=== PATIENT | male | born 1985 | race Caucasian/White ===

== ENCOUNTER 2017-09-24 17:05 | Emergency (ER) | payer SELFPAY ==
[2017-09-24 17:17] VITALS: BP 151/81
[2017-09-24] MEDS ORDERED: IV NORMAL SALINE 1,000ML 1,000 ML IV SCH (17:18)
--- NOTE | 2017-09-24 17:23 | PHYS DOC ---
Past History Past Medical History: Other Additional Past Medical Histor: kidney stone Smoking: Greater than 1 pack/day Drug Use: None Adult General Chief Complaint Chief Complaint: BACK PAIN OR INJURY HPI HPI 32-year-old male patient complaining of sudden onset of left flank pain since yesterday as a constant pain with radiation to left scrotal area that getting force with movement. Patient complaining of nausea and hematuria and urinary frequency and dysuria. Patient rated the ninth states the pain is constant. Patient states that the same pain kidney stone 2 years ago. Patient denies associated fever and chills and dehydration. Review of Systems Review of Systems Constitutional: Denies fever or chills [] Eyes: Denies change in visual acuity, redness, or eye pain [] HENT: Denies nasal congestion or sore throat [] Respiratory: Denies cough or shortness of breath [] Cardiovascular: No additional information not addressed in HPI [] GI: Denies abdominal pain, vomiting, bloody stools or diarrhea, reports nausea [] : Reports dysuria and hematuria and flank pain Musculoskeletal: Denies back pain or joint pain [] Integument: Denies rash or skin lesions [] Neurologic: Denies headache, focal weakness or sensory changes [] Endocrine: Denies polyuria or polydipsia [] All other systems were reviewed and found to be within normal limits, except as documented in this note. Allergies Allergies Allergies Coded Allergies Type Severity Reaction Last Updated Verified tramadol Allergy Mild 09/24/17 Yes Physical Exam Physical Exam Constitutional: Well nourished, mild distress, non-toxic appearance. [] HENT: Normocephalic, atraumatic, bilateral external ears normal, oropharynx moist, no oral exudates, nose normal. [] Eyes: PERRLA, EOMI, conjunctiva normal, no discharge. [] Neck: Normal range of motion, no tenderness, supple, no stridor. [] Cardiovascular:Heart rate regular rhythm, no murmur [] Lungs & Thorax: Bilateral breath sounds clear to auscultation [] Abdomen: Bowel sounds normal, soft, no tenderness, no masses, no pulsatile masses. [] Skin: Warm, dry, no erythema, no rash. [] Back: No tenderness, left CVA tenderness. [] Extremities: No tenderness, no cyanosis, no clubbing, ROM intact, no edema. [] Neurologic: Alert and oriented X 3, normal motor function, normal sensory function, no focal deficits noted. [] Psychologic: Affect normal, judgement normal, mood normal. [] EKG EKG [] Radiology/Procedures Radiology/Procedures [] Course & Med Decision Making Course & Med Decision Making Pertinent Labs and Imaging studies are pending. Patient presented to ER with left flank pain and nausea and hematuria since yesterday. Patient had CV tenderness without fever and tachycardia. Patient decided to leave AMA at 1748 and sign AMA form. Dragon Disclaimer Dragon Disclaimer This electronic medical record was generated, in whole or in part, using a voice recognition dictation system. Departure Departure: Impression: Primary Impression: Left against medical advice Additional Impressions: Acute flank pain Tobacco abuse Disposition: 07 AGAINST MEDICAL ADVICE (At 1748) Problem Qualifiers HANNA LANDERS MD Sep 24, 2017 17:23
[2017-09-24] MEDS ORDERED: 0.9 % SODIUM CHLORIDE 10 ML DISP.SYRIN. IV PRN (17:30)
[2017-09-24] MEDS ORDERED: ONDANSETRON PF 4 MG/2 ML VIAL. IV ONE (17:45)
[2017-09-24] MEDS ORDERED: KETOROLAC 30 MG/ML VIAL. IV ONE (17:45)
--- NOTE | 2017-09-24 17:46 | RAD ---
Indication: Left flank pain with hematuria for 2 days. History of renal stones. Technique: Axial images and coronal and sagittal reformatted images are provided. Comparison is from August 30, 2017. One or more of the following individualized dose reduction techniques were utilized for this examination: 1. Automated exposure control 2. Adjustment of the mA and/or kV according to patient size 3. Use of iterative reconstruction technique Findings: There are some vague groundglass nodules in the right lower lobe up to 4 mm in size. There is also a solid nodule measuring 6 mm. There is no pleural effusion. The heart is not enlarged. Solid organ evaluation is limited without contrast. Liver is unremarkable. Gallbladder is absent. Spleen is not enlarged. Pancreas and adrenals are unremarkable. Density in the left kidney is likely a 4 mm nonobstructing calculus. There is no obstructing calculus. Neither ureter is dilated and neither ureter can be followed in its entirety. No calculus along the expected course of either ureter is apparent. Aorta is normal caliber. Lack of IV or oral contrast limits evaluation of bowel. There is no small bowel obstruction or obvious mural thickening. Colon is grossly unremarkable, there is a moderate amount of stool in the colon. Appendix is reported as surgically absent. Bladder is unremarkable. Calcified phleboliths are noted. Prostate is not enlarged. Bony structures are intact. IMPRESSION: 1. Nonobstructing calculus in the left kidney. No obstructing calculus. 2. Groundglass nodules in the right lower lobe, 3 month follow-up recommended per Fleischner Society guidelines. The solid nodule can be reevaluated at that time as well. Electronically signed by: Selvin Munzo MD (09/24/2017 5:43 PM) [facility]
[2017-09-24 18:01] LABS: BASO # 0.1 x10^3/uL (0.0-0.2); BASO % 1 % (0-3); EOS # 0.4 x10^3/uL (0.0-0.7); EOS % 7 % (0-3); HEMOGLOBIN 14.3 g/dL (13.0-17.5); LYMPH # 1.4 x10^3/uL (1.0-4.8); LYMPH % 25 % (24-48); MEAN CORPUSCULAR HEMOGLOBIN 30 pg (25-35); MEAN CORPUSCULAR HGB CONC 34 g/dL (31-37); MEAN CORPUSCULAR VOLUME 89 fL (79-100); MONO # 0.6 x10^3/uL (0.0-1.1); MONO % 12 % (0-9); NEUT % 55 % (31-73); PLATELET COUNT 225 x10^3/uL (140-400); RED BLOOD COUNT 4.71 x10^6/uL (4.30-5.70); RED CELL DISTRIBUTION WIDTH 13.8 % (11.5-14.5); WHITE BLOOD COUNT 5.4 x10^3/uL (4.0-11.0)
[2017-09-24 18:15] LABS: ALBUMIN 3.3 g/dL (3.4-5.0); CALCIUM 8.6 mg/dL (8.5-10.1); CREATININE 1.1 mg/dL (0.7-1.3); GFR 77.1; POTASSIUM 4.3 mmol/L (3.5-5.1); TOTAL BILIRUBIN 0.2 mg/dL (0.2-1.0); TOTAL PROTEIN 6.5 g/dL (6.4-8.2)
[2017-09-24 18:16] LABS: BARBITURATES NEG (NEG); BENZODIAZEPINES NEG (NEG); CANNABINOIDS NEG (NEG); COCAINE NEG (NEG); METHADONE NEG (NEG); OPIATES POS (NEG); PHENCYCLIDINE NEG (NEG)
[2017-09-24 18:17] LABS: AMPHETAMINE/METHAMPHETAMINE POS (NEG)
[2017-09-24 18:24] LABS: COLOR,URINE AMBER
[2017-09-24 18:25] LABS: BILIRUBIN,URINE NEG (NEG); CLARITY,URINE HAZY; GLUCOSE,URINE NEG (NEG); NITRITE,URINE NEG (NEG); UROBILINOGEN,URINE 1 mg/dL (0.2 mg/dL)
[2017-09-24 18:26] LABS: BACTERIA,URINE 0 /HPF (0-FEW); RBC,URINE TNTC /HPF (0-2); SQUAMOUS EPITHELIAL CELL,UR FEW /LPF
[2017-09-25] MEDS ORDERED: ONDA8TAB12 PO (03:28)
[2017-09-25] MEDS ORDERED: HYDR-79 PO (03:28)
== END 2017-09-24 18:05 | disposition left against medical advice (07) ==
LOC: ER 17:05
DX: R10.9 Unspecified abdominal pain (principal); R31.9 Hematuria, unspecified; R30.0 Dysuria; F17.200 Nicotine dependence, unspecified, uncomplicated; Z87.442 Personal history of urinary calculi; Z88.6 Allergy status to analgesic agent
CPT/HCPCS: 36415; 74176; 80053; 80307; 81001; 83690; 85025; 96374; 96375; 99285; J1885; J2405; G0479

== ENCOUNTER 2017-09-25 01:44 | Emergency (ER) | payer SELFPAY ==
[~2017-09-25] VITALS: Ht 180.3 cm; Wt 77.1 kg
--- NOTE | 2017-09-25 01:56 | ED.ADGEN ---
Past History Past Medical History: Kidney Stones, Other Additional Past Medical Histor: kidney stone Past Surgical History: No Surgical History Smoking: Greater than 1 pack/day Alcohol Use: None Drug Use: None Adult General Chief Complaint Chief Complaint ".. I was here earlier.. but I had to leave because my needed a ride.. but I think I got a kidney stone. .. here on the lt." HPI HPI Patient is a 32 year old male who presents with above hx and complaints left sided renal colic. He has had 1 previous kidney stone. Patient denies any trauma. Patient denies any travel. Patient denies any ill contacts. Patient denies any history immunosuppression. Reviewed CT completed earlier, no findings of obstructing kidney stone. There was a nonobstructing calculus in the left kidney. Does have some nonspecific ground glass nodules in the right lower pulmonary area. No other surgical pathology detected Review of Systems Review of Systems Constitutional: Denies fever or chills [] Eyes: Denies change in visual acuity, redness, or eye pain [] HENT: Denies nasal congestion or sore throat [] Respiratory: Denies cough or shortness of breath [] Cardiovascular: No additional information not addressed in HPI [] GI: Complaints of abdominal pain, nausea, vomiting,. Pain is localized to left flank. Patient denies Bloody stools or diarrhea [] : Denies dysuria or hematuria [] Musculoskeletal: Denies back pain or joint pain [] Integument: Denies rash or skin lesions [] Neurologic: Denies headache, focal weakness or sensory changes [] Endocrine: Denies polyuria or polydipsia [] All other systems were reviewed and found to be within normal limits, except as documented in this note. Family History Family History Noncontributory Current Medications Current Medications Current Medications Medications (Trade) Dose Ordered Sig/David Start Time Stop Time Status Last Admin Dose Admin Famotidine (Pepcid Vial) 20 mg 1X ONCE 09/25/17 02:15 09/25/17 02:16 DC 09/25/17 02:34 20 MG Ketorolac Tromethamine (Toradol) 30 mg 1X ONCE 09/25/17 02:15 09/25/17 02:16 DC 09/25/17 02:34 30 MG Lactated Ringer's 1,000 ml @ 1,000 mls/hr Q1H 09/25/17 02:10 09/25/17 03:10 DC 09/25/17 02:33 1,000 MLS/HR Morphine Sulfate (Morphine 10mg Syringe) 10 mg 1X ONCE 09/25/17 02:15 09/25/17 02:16 DC 09/25/17 02:35 10 MG Ondansetron HCl (Zofran) 8 mg 1X ONCE 09/25/17 02:15 09/25/17 02:16 DC 09/25/17 02:34 8 MG Tamsulosin HCl (Flomax) 0.4 mg 1X ONCE 09/25/17 02:15 09/25/17 02:16 DC 09/25/17 02:34 0.4 MG Allergies Allergies Allergies Coded Allergies Type Severity Reaction Last Updated Verified tramadol Allergy Mild 09/24/17 Yes Physical Exam Physical Exam Constitutional: Well developed, well nourished, Pt reports acute distress, non- toxic appearance. [] HENT: Normocephalic, atraumatic, bilateral external ears normal, oropharynx moist, no oral exudates, nose normal. [] Eyes: PERRLA, EOMI, conjunctiva normal, no discharge. [] Neck: Normal range of motion, no tenderness, supple, no stridor. [] Cardiovascular:Heart rate regular rhythm, no murmur [] Lungs & Thorax: Bilateral breath sounds equal with scattered wheezes on auscultation [] Abdomen: Bowel sounds decreased,, soft, left flank tenderness, no masses, no pulsatile masses. [] Skin: Warm, dry, no erythema, no rash. Multiple tattoos over his entire body. Appears to have injection singh on arm veins Back: No tenderness, left flank CVA tenderness. [] Extremities: No tenderness, no cyanosis, no clubbing, ROM intact, no edema. 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 [] Psychologic: Affect normal, judgement normal, mood normal. [] Current Patient Data Vital Signs Vital Signs Date Time Temp Pulse Resp B/P (MAP) Pulse Ox O2 Delivery O2 Flow Rate FiO2 09/25/17 01:44 97.8 80 16 98 Room Air Lab Results Laboratory Tests Test 09/25/17 02:18 09/25/17 02:27 Urine Collection Type Unknown Urine Color Jessika Urine Clarity Cloudy Urine pH 6.0 Urine Specific Union >=1.030 Urine Protein Trace (NEG-TRACE) Urine Glucose (UA) Neg mg/dL (NEG) Urine Ketones (Stick) Neg mg/dL (NEG) Urine Blood Large (NEG) Urine Nitrite Neg (NEG) Urine Bilirubin Neg (NEG) Urine Urobilinogen Dipstick 1 mg/dL (0.2 mg/dL) Urine Leukocyte Esterase Neg (NEG) Urine RBC Tntc /HPF (0-2) Urine WBC Occ /HPF (0-4) Urine Squamous Epithelial Cells Occ /LPF Urine Bacteria Few /HPF (0-FEW) Urine Mucus Slight /LPF Urine Opiates Screen Pos (NEG) Urine Methadone Screen Neg (NEG) Urine Barbiturates Neg (NEG) Urine Phencyclidine Screen Neg (NEG) Urine Amphetamine/Methamphetamine Pos (NEG) Urine Benzodiazepines Screen Neg (NEG) Urine Cocaine Screen Neg (NEG) Urine Cannabinoids Screen Neg (NEG) Urine Ethyl Alcohol Neg (NEG) White Blood Count 6.0 x10^3/uL (4.0-11.0) Red Blood Count 4.42 x10^6/uL (4.30-5.70) Hemoglobin 13.1 g/dL (13.0-17.5) Hematocrit 39.1 % (39.0-53.0) Mean Corpuscular Volume 89 fL (79-100) Mean Corpuscular Hemoglobin 30 pg (25-35) Mean Corpuscular Hemoglobin Concent 34 g/dL (31-37) Red Cell Distribution Width 13.9 % (11.5-14.5) Platelet Count 212 x10^3/uL (140-400) Neutrophils (%) (Auto) 47 % (31-73) Lymphocytes (%) (Auto) 33 % (24-48) Monocytes (%) (Auto) 12 % (0-9) H Eosinophils (%) (Auto) 8 % (0-3) H Basophils (%) (Auto) 1 % (0-3) Neutrophils # (Auto) 2.8 x10^3uL (1.8-7.7) Lymphocytes # (Auto) 1.9 x10^3/uL (1.0-4.8) Monocytes # (Auto) 0.7 x10^3/uL (0.0-1.1) Eosinophils # (Auto) 0.5 x10^3/uL (0.0-0.7) Basophils # (Auto) 0.1 x10^3/uL (0.0-0.2) Prothrombin Time 9.3 SEC (9.4-11.4) L Prothrombin Time INR 0.9 (0.9-1.1) PTT 24 SEC (23-33) Sodium Level 139 mmol/L (136-145) Potassium Level 3.8 mmol/L (3.5-5.1) Chloride Level 103 mmol/L (98-107) Carbon Dioxide Level 27 mmol/L (21-32) Anion Gap 9 (6-14) Blood Urea Nitrogen 17 mg/dL (8-26) Creatinine 1.1 mg/dL (0.7-1.3) Estimated GFR (Cockcroft-Gault) 77.1 Glucose Level 137 mg/dL (70-99) H Calcium Level 8.9 mg/dL (8.5-10.1) Total Bilirubin 0.2 mg/dL (0.2-1.0) Direct Bilirubin 0.1 mg/dL (0.0-0.2) Aspartate Amino Transferase (AST) 27 U/L (15-37) Alanine Aminotransferase (ALT) 37 U/L (16-63) Alkaline Phosphatase 131 U/L (46-116) H Total Protein 6.4 g/dL (6.4-8.2) Albumin 3.3 g/dL (3.4-5.0) L Lipase 109 U/L (73-393) EKG EKG [] Radiology/Procedures Radiology/Procedures Reviewed CT completed earlier in the day. My interpretation of Acute abdomen shows no acute cardiopulmonary findings. No free air in the diaphragm. Has clips in right upper quadrant from previous gallbladder surgery increased stool throughout the colon. No obvious renal stone appreciated.[] Course & Med Decision Making Course & Med Decision Making Pertinent Labs and Imaging studies reviewed. (See chart for details). Pt. sleeping comfortable prior to discharge. Patient continue to push clear fluids. No solid or milk products. Take Zofran as needed for nausea and vomiting. Take Tylenol and ibuprofen as needed for pain. For marked pain may take Vicoprofen up 4 times a day. Must follow-up primary care. Consider follow-up with urology and nephrology or hematuria. Patient encouraged to stop smoking and avoid illicit drug use. [] Final Impression Final Impression 1. Renal Colic Lt. [] 2. Hematuria 3. Polysubstance abuse Problems: Dragon Disclaimer Dragon Disclaimer This electronic medical record was generated, in whole or in part, using a voice recognition dictation system. DILSHAD CORCORAN MD Sep 25, 2017 01:56
[2017-09-25] MEDS ORDERED: IV RINGERS SOLUTION,LACTATED 1,000 ML IV SCH (02:10)
[2017-09-25] MEDS ORDERED: MORPHINE SULFATE 10 MG/ML SYRINGE. SQ ONE (02:15)
[2017-09-25] MEDS ORDERED: TAMSULOSIN 0.4 MG CAP.ER.24H. PO ONE (02:15)
[2017-09-25] MEDS ORDERED: ONDANSETRON PF 4 MG/2 ML VIAL. IV ONE (02:15)
[2017-09-25] MEDS ORDERED: KETOROLAC 30 MG/ML VIAL. IV ONE (02:15)
[2017-09-25] MEDS ORDERED: FAMOTIDINE 20 MG/2 ML VIAL IVP ONE (02:15)
[2017-09-25 02:52] LABS: BASO # 0.1 x10^3/uL (0.0-0.2); BASO % 1 % (0-3); EOS # 0.5 x10^3/uL (0.0-0.7); EOS % 8 % (0-3); HEMATOCRIT 39.1 % (39.0-53.0); HEMOGLOBIN 13.1 g/dL (13.0-17.5); LYMPH # 1.9 x10^3/uL (1.0-4.8); LYMPH % 33 % (24-48); MEAN CORPUSCULAR HEMOGLOBIN 30 pg (25-35); MEAN CORPUSCULAR HGB CONC 34 g/dL (31-37); MEAN CORPUSCULAR VOLUME 89 fL (79-100); MONO # 0.7 x10^3/uL (0.0-1.1); MONO % 12 % (0-9); NEUT # 2.8 x10^3uL (1.8-7.7); NEUT % 47 % (31-73); PLATELET COUNT 212 x10^3/uL (140-400); RED BLOOD COUNT 4.42 x10^6/uL (4.30-5.70); RED CELL DISTRIBUTION WIDTH 13.9 % (11.5-14.5)
[2017-09-25 02:52] LABS: BACTERIA,URINE FEW /HPF (0-FEW); BILIRUBIN,URINE NEG (NEG); CLARITY,URINE CLOUDY; COLOR,URINE AMBER; GLUCOSE,URINE NEG (NEG); NITRITE,URINE NEG (NEG); RBC,URINE TNTC /HPF (0-2); SQUAMOUS EPITHELIAL CELL,UR OCC /LPF; UROBILINOGEN,URINE 1 mg/dL (0.2 mg/dL); WBC,URINE OCC /HPF (0-4)
[2017-09-25 02:54] LABS: ALBUMIN 3.3 g/dL (3.4-5.0); CALCIUM 8.9 mg/dL (8.5-10.1); CREATININE 1.1 mg/dL (0.7-1.3); DIRECT BILIRUBIN 0.1 mg/dL (0.0-0.2); GFR 77.1; POTASSIUM 3.8 mmol/L (3.5-5.1); TOTAL BILIRUBIN 0.2 mg/dL (0.2-1.0); TOTAL PROTEIN 6.4 g/dL (6.4-8.2)
[2017-09-25 02:54] LABS: BARBITURATES NEG (NEG); BENZODIAZEPINES NEG (NEG); CANNABINOIDS NEG (NEG); COCAINE NEG (NEG); METHADONE NEG (NEG); OPIATES POS (NEG); PHENCYCLIDINE NEG (NEG)
[2017-09-25 02:55] LABS: AMPHETAMINE/METHAMPHETAMINE POS (NEG)
[2017-09-25 03:25] VITALS: BP 140/81
[2017-09-25] MEDS ORDERED: ONDA8TAB12 PO (03:28)
[2017-09-25] MEDS ORDERED: HYDR-79 PO (03:28)
--- NOTE | 2017-09-25 08:11 | RAD ---
Indication: Left flank pain Technique: Acute abdominal series Comparison: None Findings: Heart is normal in size. Lungs are clear. No pneumothorax or pleural effusion. No evidence of free intraperitoneal air. Status post cholecystectomy. No abnormal calcific density projecting over the kidneys. 4 mm calcific density in the left hemipelvis. No abnormally dilated bowel loops or air-fluid levels. Visualized bones are within normal limits. Impression: 4 mm calcific density projecting over the left hemipelvis may represent a phlebolith or distal ureteral stone. If there is concern for obstructing kidney stone, CT abdomen and pelvis without IV contrast recommended.
== END 2017-09-25 03:52 | disposition home or self-care (01) ==
LOC: ER 01:44
DX: N23 Unspecified renal colic (principal); F19.10 Other psychoactive substance abuse, uncomplicated; F17.210 Nicotine dependence, cigarettes, uncomplicated; Z87.442 Personal history of urinary calculi; Z88.6 Allergy status to analgesic agent
CPT/HCPCS: 36415; 74022; 80048; 80076; 80307; 81001; 83690; 85025; 85610; 85730; 96361; 96372; 96374; 96375; 99285; J1885; J2270; J2405; J7120; S0028; G0479

== ENCOUNTER 2017-10-22 13:21 | Emergency (ER) | payer SELFPAY ==
[~2017-10-22] VITALS: Ht 180.3 cm; Wt 77.1 kg
[~2017-10-22 13:21] MED LIST: HYDR-79 PO; ONDA8TAB12 PO
[2017-10-22 13:37] VITALS: BP 117/65
--- NOTE | 2017-10-22 13:39 | PHYS DOC ---
Past History Past Medical History: Kidney Stones, Other Additional Past Medical Histor: kidney stone Past Surgical History: No Surgical History Smoking: Greater than 1 pack/day Alcohol Use: None Drug Use: Methamphetamine, Opiates Adult General Chief Complaint Chief Complaint: DENTAL PROBLEM HPI HPI Patient is a 32 year old M who presents with dental pain. Dong states that he was at the [facility] and was given an antibiotics and pain medication. He states that his tooth continues to hurt and no procedure will be done for the next 3 days. He is wanting additional pain medication Review of Systems Review of Systems Constitutional: Denies fever or chills [] Eyes: Denies change in visual acuity, redness, or eye pain [] HENT: Denies nasal congestion or sore throat [] Respiratory: Denies cough or shortness of breath [] Cardiovascular: No additional information not addressed in HPI [] GI: Denies abdominal pain, nausea, vomiting, bloody stools or diarrhea [] : Denies dysuria or hematuria [] Musculoskeletal: Denies back pain or joint pain [] Integument: Denies rash or skin lesions [] Neurologic: Denies headache, focal weakness or sensory changes [] Endocrine: Denies polyuria or polydipsia [] All other systems were reviewed and found to be within normal limits, except as documented in this note. Family History Family History No pertinent family medical history was reported Current Medications Current Medications Current medications reviewed Allergies Allergies Allergies Coded Allergies Type Severity Reaction Last Updated Verified tramadol Allergy Mild 09/24/17 Yes Physical Exam Physical Exam Constitutional: Well developed, well nourished, no acute distress, non-toxic appearance. [] HENT: Exam was declined Eyes: Exam was declined Neck: Exam was declined Cardiovascular: Exam was declined Lungs & Thorax: Exam was declined Abdomen: Exam was declined Skin: Exam was declined Back: Exam was declined Extremities: Exam was declined Neurologic: Exam was declined Psychologic: Affect normal, judgement normal, mood normal. [] EKG EKG [] Radiology/Procedures Radiology/Procedures [] Course & Med Decision Making Course & Med Decision Making Pertinent Labs and Imaging studies reviewed. (See chart for details) Dong left prior to completion of his encounter Dragon Disclaimer Dragon Disclaimer This electronic medical record was generated, in whole or in part, using a voice recognition dictation system. Departure Departure: Impression: Primary Impression: Pain, dental Disposition: AGAINST MEDICAL ADVICE Referrals: PCP,NO (PCP) BECKY MAC MD Oct 22, 2017 13:39
== END 2017-10-22 13:46 | disposition left against medical advice (07) ==
LOC: ER 13:21
DX: K08.89 Other specified disorders of teeth and supporting structures (principal); F17.210 Nicotine dependence, cigarettes, uncomplicated; F15.10 Other stimulant abuse, uncomplicated; F11.10 Opioid abuse, uncomplicated; Z87.442 Personal history of urinary calculi; Z88.6 Allergy status to analgesic agent
CPT/HCPCS: 99281

== ENCOUNTER 2017-11-29 18:11 | Emergency (ER) | payer SELFPAY ==
[~2017-11-29] VITALS: Ht 180.3 cm; Wt 89.4 kg
[2017-11-29 19:25] LABS: BASO # 0.1 x10^3/uL (0.0-0.2); BASO % 1 % (0-3); EOS # 0.4 x10^3/uL (0.0-0.7); EOS % 6 % (0-3); HEMATOCRIT 37.9 % (39.0-53.0); HEMOGLOBIN 12.9 g/dL (13.0-17.5); LYMPH # 2.1 x10^3/uL (1.0-4.8); LYMPH % 33 % (24-48); MEAN CORPUSCULAR HEMOGLOBIN 30 pg (25-35); MEAN CORPUSCULAR HGB CONC 34 g/dL (31-37); MEAN CORPUSCULAR VOLUME 88 fL (79-100); MONO # 0.5 x10^3/uL (0.0-1.1); MONO % 8 % (0-9); NEUT # 3.4 x10^3uL (1.8-7.7); NEUT % 52 % (31-73); PLATELET COUNT 288 x10^3/uL (140-400); RED BLOOD COUNT 4.32 x10^6/uL (4.30-5.70); WHITE BLOOD COUNT 6.5 x10^3/uL (4.0-11.0)
--- NOTE | 2017-11-29 19:29 | PHYS DOC ---
Past History Past Medical History: No Pertinent History, Pancreatitis Additional Past Medical Histor: kidney stone Past Surgical History: No Surgical History Smoking: Greater than 1 pack/day Alcohol Use: None Drug Use: None Adult General Chief Complaint Chief Complaint: FLANK PAIN HPI HPI Patient is a 32 year old male who presents with complaint of left flank pain. Patient states his symptoms started yesterday. The patient states he's had history kidney stones and was evaluated in August 2017. X-rays at that time revealed a 4 mm kidney stone in the distal ureter. The patient states that his symptoms had resolved at that time and did not seek any further treatment. Patient started noticing blood in his urine yesterday and started getting severe left-sided flank pain that comes and goes. Patient rates his pain currently as 9 out of 10. Patient has not had any associated fevers or vomiting with symptoms. Patient has not taking medications at home for symptoms. Review of Systems Review of Systems Constitutional: Denies fever or chills [] Eyes: Denies change in visual acuity, redness, or eye pain [] HENT: Denies nasal congestion or sore throat [] Respiratory: Denies cough or shortness of breath [] Cardiovascular: No additional information not addressed in HPI [] GI: Nausea, denies abdominal pain, vomiting, or diarrhea[] : Hematuria[] Musculoskeletal: Left flank pain, denies joint pain [] Integument: Denies rash or skin lesions [] Neurologic: Denies headache, focal weakness or sensory changes [] All other systems were reviewed and found to be within normal limits, except as documented in this note. Current Medications Current Medications Current Medications Medications (Trade) Dose Ordered Sig/[facility] Start Time Stop Time Status Last Admin Dose Admin Fentanyl Citrate (Fentanyl 2ml Vial) 50 mcg PRN Q15MIN PRN 11/29/17 19:15 11/30/17 19:14 Ondansetron HCl (Zofran Odt) 4 mg 1X ONCE 11/29/17 19:45 11/29/17 19:46 Ondansetron HCl (Zofran) 4 mg 1X ONCE 11/29/17 19:30 11/29/17 19:30 DC Sodium Chloride 1,000 ml @ 1,000 mls/hr Q1H 11/29/17 19:30 11/29/17 20:29 Allergies Allergies Allergies Coded Allergies Type Severity Reaction Last Updated Verified tramadol Allergy Mild 09/24/17 Yes Physical Exam Physical Exam Constitutional: Alert, afebrile, there is mild discomfort. [] HENT: Normocephalic, atraumatic, bilateral external ears normal, oropharynx moist, no oral exudates, nose normal. [] Eyes: PERRLA, EOMI, conjunctiva normal, no discharge. [] Neck: Normal range of motion, no tenderness, supple, no stridor. [] Cardiovascular:Heart rate regular rhythm, no murmur [] Lungs & Thorax: Bilateral breath sounds clear to auscultation [] Abdomen: Bowel sounds normal, soft, no tenderness, no masses, no pulsatile masses. [] Skin: Warm, dry, no erythema, no rash. [] Back: No tenderness, no CVA tenderness. [] Extremities: No tenderness, no cyanosis, no clubbing, ROM intact, no edema. [] Neurologic: Alert and oriented X 3, normal motor function, normal sensory function, no focal deficits noted. [] Current Patient Data Vital Signs Vital Signs Date Time Temp Pulse Resp B/P (MAP) Pulse Ox O2 Delivery O2 Flow Rate FiO2 11/29/17 18:11 97.8 86 18 98 Room Air Lab Results Laboratory Tests Test 11/29/17 19:00 White Blood Count 6.5 x10^3/uL (4.0-11.0) Red Blood Count 4.32 x10^6/uL (4.30-5.70) Hemoglobin 12.9 g/dL (13.0-17.5) L Hematocrit 37.9 % (39.0-53.0) L Mean Corpuscular Volume 88 fL (79-100) Mean Corpuscular Hemoglobin 30 pg (25-35) Mean Corpuscular Hemoglobin Concent 34 g/dL (31-37) Red Cell Distribution Width 14.0 % (11.5-14.5) Platelet Count 288 x10^3/uL (140-400) Neutrophils (%) (Auto) 52 % (31-73) Lymphocytes (%) (Auto) 33 % (24-48) Monocytes (%) (Auto) 8 % (0-9) Eosinophils (%) (Auto) 6 % (0-3) H Basophils (%) (Auto) 1 % (0-3) Neutrophils # (Auto) 3.4 x10^3uL (1.8-7.7) Lymphocytes # (Auto) 2.1 x10^3/uL (1.0-4.8) Monocytes # (Auto) 0.5 x10^3/uL (0.0-1.1) Eosinophils # (Auto) 0.4 x10^3/uL (0.0-0.7) Basophils # (Auto) 0.1 x10^3/uL (0.0-0.2) EKG EKG Not performed[] Radiology/Procedures Radiology/[place] [address] IMAGING REPORT Signed PATIENT: JENIFFER OLIVER ACCOUNT: [id number] : 1985 LOCATION: ER AGE: 32 SEX: M EXAM STATUS: REG ER ORD. PHYSICIAN: DANYELLE KOHLER MD REASON: LEFT FLANK PAIN, HEMATURIA PROCEDURE: CT ABDOMEN PELVIS WO CONTRAST CT abdomen and pelvis without contrast: Reason for examination: Left flank pain. History of stones. Large amount of hematuria. Comparison is made to previous study dated 09/24/2017. Helical images were obtained through the abdomen and pelvis with no intravenous or oral contrast administered. Reconstruction was performed in sagittal and coronal planes. Exposure: One or more of the following individualized dose reduction techniques were utilized for this examination: 1. Automated exposure control 2. Adjustment of the mA and/or kV according to patient size 3. Use of iterative reconstruction technique. The lung bases are clear. The heart size is normal with no pericardial effusion evident. No abnormality seen at the liver, spleen, adrenal glands, pancreas, abdominal aorta or inferior vena cava. The gallbladder surgically absent. The kidneys show no masses or hydronephrosis and no renal calculi are identified. There is contrast in the collecting system however no hydronephrosis or obstructive uropathy is evident. The intestinal tract shows no abnormally dilated loops of bowel or thickened bowel scott. The stomach is distended with a large amount of gastric content present and the patient has not been nothing by mouth. The appendix is reported to be surgically absent. There is contrast within the urinary bladder and focal bladder lesion is not seen. There is calcification in the prostate gland. Seminal vesicles are symmetric. No free fluid or free air is seen in the abdomen. No acute bony abnormalities evident. IMPRESSION: Excreted contrast present in the collecting systems of the kidneys and ureters bilaterally and in the urinary bladder. A small nonobstructing calculus could be obscured by the contrast in the collecting systems. There is no evidence of obstructive uropathy. No evidence of bowel obstruction. Calcification in the prostate gland. Electronically signed by: Linda Marie MD (11/29/2017 8:17 PM) [facility] DICTATED AND SIGNED BY: ILNDA MARIE MD DATE: 11/29/172007 CC: DANYELLE KOHLER MD; PCP,NO ~ [] Course & Med Decision Making Course & Med Decision Making Pertinent Labs and Imaging studies reviewed. (See chart for details) Patient was given IV fluids, fentanyl, and Zofran for symptoms. The patient's CT scan was slightly obscured due to the presence of contrast within the urinary tract. The patient declined to mention that 2 days ago he was seen at another facility where he had an IV contrast CT scan done to rule out bowel obstruction. The patient does not show any evidence of obstructive uropathy based off of CT scan and blood work. Due to presence of blood and urine, the patient could have cystitis or possible small stone that is obscured by contrast. The patient will be started on Keflex for treatment of possible infectious cystitis. Patient will also be prescribed [place] and Zofran for outpatient treatment. Advised follow-up with a urologist in 1 week for reevaluation and to return to emergency department for any worsening symptoms. Patient voiced understanding and agreement with treatment plan. Dragon Disclaimer Dragon Disclaimer This electronic medical record was generated, in whole or in part, using a voice recognition dictation system. Departure Departure: Impression: Primary Impression: Flank pain Additional Impression: Hematuria Disposition: HOME, SELF-CARE Condition: STABLE Referrals: PCP,NO (PCP) DOROTA DICK Patient Instructions: Flank Pain, Hematuria, Adult Additional Instructions: Follow-up with Dr. Dick of urology in one week for follow-up. Return to the emergency department for any worsening symptoms. Scripts Ondansetron (ZOFRAN ODT) 4 Mg Tab.rapdis 1 TAB SL Q8HRS PRN for NAUSEA/VOMITING, #15 TAB Prov: DANYELLE KOHLER MD 11/29/17 Hydrocodone Bit/Acetaminophen (NORCO 5-325 TABLET) 1 Each Tablet 1-2 TAB PO Q4-6HRS PRN for PAIN, #20 TAB Prov: DANYELLE KOHLER MD 11/29/17 Cephalexin (KEFLEX) 500 Mg Capsule 1 CAP PO TID, #30 CAP Prov: DANYELLE KOHLER MD 11/29/17 Problem Qualifiers Additional Impression: Hematuria Hematuria type: unspecified type Qualified Codes: R31.9 - Hematuria, unspecified DANYELLE KOHLER MD Nov 29, 2017 19:29
[2017-11-29] MEDS ORDERED: ONDANSETRON PF 4 MG/2 ML VIAL. IV ONE (19:30)
[2017-11-29 19:33] LABS: BILIRUBIN,URINE NEG (NEG); CLARITY,URINE TURBID; COLOR,URINE AMBER; GLUCOSE,URINE NEG (NEG)
[2017-11-29 19:34] LABS: BACTERIA,URINE 0 /HPF (0-FEW); NITRITE,URINE NEG (NEG); RBC,URINE >40 /HPF (0-2); SQUAMOUS EPITHELIAL CELL,UR FEW /LPF; UROBILINOGEN,URINE 0.2 mg/dL (0.2 mg/dL)
[2017-11-29 19:36] LABS: ALBUMIN 3.2 g/dL (3.4-5.0); ALBUMIN/GLOBULIN RATIO 1.1 (1.0-1.7); GFR 86.1; POTASSIUM 3.8 mmol/L (3.5-5.1); TOTAL BILIRUBIN 0.2 mg/dL (0.2-1.0); TOTAL PROTEIN 6.2 g/dL (6.4-8.2)
[2017-11-29] MEDS: IV NORMAL SALINE 1,000ML 1,000 ML IV SCH (19:38)
[2017-11-29] MEDS: ONDANSETRON ODT 4 MG TAB.RAPDIS PO ONE (19:38)
--- NOTE | 2017-11-29 20:21 | RAD ---
CT abdomen and pelvis without contrast: Reason for examination: Left flank pain. History of stones. Large amount of hematuria. Comparison is made to previous study dated 09/24/2017. Helical images were obtained through the abdomen and pelvis with no intravenous or oral contrast administered. Reconstruction was performed in sagittal and coronal planes. Exposure: One or more of the following individualized dose reduction techniques were utilized for this examination: 1. Automated exposure control 2. Adjustment of the mA and/or kV according to patient size 3. Use of iterative reconstruction technique. The lung bases are clear. The heart size is normal with no pericardial effusion evident. No abnormality seen at the liver, spleen, adrenal glands, pancreas, abdominal aorta or inferior vena cava. The gallbladder surgically absent. The kidneys show no masses or hydronephrosis and no renal calculi are identified. There is contrast in the collecting system however no hydronephrosis or obstructive uropathy is evident. The intestinal tract shows no abnormally dilated loops of bowel or thickened bowel scott. The stomach is distended with a large amount of gastric content present and the patient has not been nothing by mouth. The appendix is reported to be surgically absent. There is contrast within the urinary bladder and focal bladder lesion is not seen. There is calcification in the prostate gland. Seminal vesicles are symmetric. No free fluid or free air is seen in the abdomen. No acute bony abnormalities evident. IMPRESSION: Excreted contrast present in the collecting systems of the kidneys and ureters bilaterally and in the urinary bladder. A small nonobstructing calculus could be obscured by the contrast in the collecting systems. There is no evidence of obstructive uropathy. No evidence of bowel obstruction. Calcification in the prostate gland. Electronically signed by: Linda Everett MD (11/29/2017 8:17 PM) [facility]
[2017-11-29] MEDS ORDERED: CEPH-264 PO (20:43)
[2017-11-29] MEDS ORDERED: HYDR-971 PO (20:43)
[2017-11-29] MEDS ORDERED: ONDA4TAB10 SL (20:43)
[2017-11-29] MEDS: IBUPROFEN 600 MG TABLET. PO ONE (20:49)
[2017-11-29] MEDS: HYDROcodone/APAP 7.5/325MG 1 TAB TABLET PO ONE (20:49)
[2017-11-29 20:50] VITALS: BP 130/73
== END 2017-11-29 20:50 | disposition home or self-care (01) ==
LOC: ER 18:11
DX: R10.9 Unspecified abdominal pain (principal); R31.9 Hematuria, unspecified; F17.200 Nicotine dependence, unspecified, uncomplicated; Z87.442 Personal history of urinary calculi; Z88.6 Allergy status to analgesic agent
CPT/HCPCS: 36415; 74176; 80053; 81001; 83690; 85025; 96374; 99285; J3010; Q0162; J7030